=== PATIENT | female | born 1995 | race African-American/Black ===

== ENCOUNTER 2018-06-16 17:23 | Emergency (ER) | payer OTHER ==
[2018-06-16 17:34] VITALS: BP 116/93; PULSE 99; TEMP 98; BMI 30.9
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
== END 2018-06-16 19:08 | disposition home or self-care (01) ==
LOC: JERFT 17:23
DX: M25.562 Pain in left knee (principal)
CPT/HCPCS: 73562-TC-LT-FY; 99281-25